=== PATIENT | male | born 1990 | race Caucasian/White ===

== ENCOUNTER 2016-04-23 12:37 | Inpatient (IN) | payer BC, MEDICAID ==
[~2016-04-23 12:37] MED LIST: ACETAMINOP160 MG/56 GB; ALBUTEROL MDI; ALBUTEROL2.5 MG/3 M INH; BACLOFEN10 M1 GT; BACTROBAN NASAL1 G1; BACTROBAN15 GM; BACTROBAN22 GM; BENEPROTEIN; BENZOYL PEROXIDE TP; CEPHALEXIN125 MG/5 M; CHILD IBUP100 MG/5 M; CHILD IBUP100 MG/5 M GB; CLINDAMYCIN 1%; DIAPER; DUAC GEL45 GM; FLORIDE DROPS; FLOVENT HFA12 GM IH; HYDROCORTISON28.4 G1 TOP; LOTRIMIN30 GM; LOTRISONE CREAM45 GM TP; MIRALAX17 GM GB; MIRALAX255 GM; MUCINEX DM; MUCINEX DM GB; NACL 0.9%; POLY VITAMIN W/50 ML GB; PROVENTIL17 GM; RANITIDINE HCL150 M3 GT; TUSSIN10 MG/5 ML; TUSSIN10 MG/5 ML GB; TUSSIN100 MG/5 M; ZANTAC15 MG/1 ML GB; ZANTAC15 MG/ML; ZOFRAN4 MG/2 ML GB; [UNRECOGNIZED DRUG - OTHER]; [UNRECOGNIZED DRUG - OTHER]; [UNRECOGNIZED DRUG - OTHER]; [UNRECOGNIZED DRUG - OTHER]; [UNRECOGNIZED DRUG - OTHER] GB; [UNRECOGNIZED DRUG - REMARK]
[2016-04-23] MEDS ORDERED: PULMICORT0.5 MG/22 INH (14:06)
[2016-04-23] MEDS ORDERED: IPRAT-ALBUT 0.5-3 ML INH (14:07)
[2016-04-23] MEDS ORDERED: VITAMIN D31000 UNI3 GT (14:07)
[2016-04-23] MEDS ORDERED: LOTRIMIN AF12 GM TOP (14:08)
[2016-04-23] MEDS ORDERED: CALMOSEPTINE O3.5 G1 TOP (14:09)
[2016-04-23 14:41] LABS: ALB/GLOB RATIO 0.9 (0.8-2.0); ALBUMIN 3.5 g/dl (3.5-5.0); ALKALINE PHOSPHATASE 106 U/L (33-138); ALT/SGPT 43 U/L (12-78); BILIRUBIN,TOTAL 0.4 mg/dl (0.0-1.5); BLOOD UREA NITROGEN 13 mg/dl (6-24); CALCIUM 8.7 mg/dl (8.5-10.5); CARBON DIOXIDE-VENOUS 23 mmol/L (22-32); CHLORIDE 111 mmol/l (96-110); CREATININE 0.59 mg/dl (0.60-1.30); GLUCOSE 92 mg/dL (70-110); SODIUM 141 mmol/L (135-145); eGFR VALUE FOR BLACK >90 mL/Min
[2016-04-23 14:46] LABS: ANION GAP 11 mmol/L (0-20); AST/SGOT 31 U/L (10-40); POTASSIUM 4.4 mmol/L (3.7-5.1)
[2016-04-23 15:05] LABS: BASO % 0.1 % (0-2); HCT-HEMATOCRIT 47.3 % (36.0-53.5); HGB-HEMOGLOBIN 16.3 gm/dl (13.5-17.0); IMMATURE GRANULOCYTES ABSOLUTE 0.01 tho/cmm (0-0.03); IMMATURE GRANULOCYTES PERCENT 0.1 % (0-0.3); LYMPH % 15.9 % (20-45); LYMPH ABSOLUTE COUNT 1.4 tho/cmm (0.8-4.5); MCH (MEAN CORPUSCULAR HGB) 32.3 pg (28.0-32.0); MCHC MEAN CORPUSCULAR HGB CONC 34.5 % (32.0-36.0); MCV (MEAN CELL VOLUME) 93.7 fl (82.0-96.0); MEAN PLATELET VOLUME 10.3 cmc (9.4-12.4); MONOCYTE ABSOLUTE COUNT 0.4 tho/cmm (0.0-1.2); NEUTROPHIL ABSOLUTE COUNT 6.9 tho/cmm (1.6-8.0); NEUTROPHIL-AUTOMATED 6.9 tho/cmm (1.6-8.0); NEUTROPHILS % 78.9 % (40-80); PLATELET COUNT 236 tho/cmm (150-450); RED BLOOD COUNT 5.05 mil/cmm (4.40-5.70); RED CELL DISTRIBUTION WIDTH 12.7 % (12.4-16.4); WHITE BLOOD COUNT 8.7 tho/cmm (4.0-10.0)
[2016-04-23 15:59] LABS: PROCALCITONIN <0.05 ng/ml (0.05-0.09)
[2016-04-24 06:12] LABS: BASO % 0.2 % (0-2); HCT-HEMATOCRIT 45.1 % (36.0-53.5); IMMATURE GRANULOCYTES ABSOLUTE 0.01 tho/cmm (0-0.03); IMMATURE GRANULOCYTES PERCENT 0.1 % (0-0.3); LYMPH % 20.2 % (20-45); LYMPH ABSOLUTE COUNT 1.8 tho/cmm (0.8-4.5); MCH (MEAN CORPUSCULAR HGB) 31.5 pg (28.0-32.0); MCHC MEAN CORPUSCULAR HGB CONC 33.3 % (32.0-36.0); MCV (MEAN CELL VOLUME) 94.7 fl (82.0-96.0); MEAN PLATELET VOLUME 9.9 cmc (9.4-12.4); MONO % 9.8 % (0-12); MONOCYTE ABSOLUTE COUNT 0.9 tho/cmm (0.0-1.2); NEUTROPHIL ABSOLUTE COUNT 6.4 tho/cmm (1.6-8.0); NEUTROPHIL-AUTOMATED 6.4 tho/cmm (1.6-8.0); NEUTROPHILS % 69.7 % (40-80); PLATELET COUNT 249 tho/cmm (150-450); RED BLOOD COUNT 4.76 mil/cmm (4.40-5.70); RED CELL DISTRIBUTION WIDTH 12.7 % (12.4-16.4); WHITE BLOOD COUNT 9.1 tho/cmm (4.0-10.0)
[2016-04-24 06:45] LABS: ANION GAP 18 mmol/L (0-20); BLOOD UREA NITROGEN 13 mg/dl (6-24); CALCIUM 8.8 mg/dl (8.5-10.5); CARBON DIOXIDE-VENOUS 22 mmol/L (22-32); CHLORIDE 111 mmol/l (96-110); GLUCOSE 76 mg/dL (70-110); POTASSIUM 4.7 mmol/L (3.7-5.1); SODIUM 146 mmol/L (135-145); eGFR VALUE FOR BLACK >90 mL/Min
[2016-04-24 06:56] LABS: PROCALCITONIN <0.05 ng/ml (0.05-0.09)
[2016-04-25 04:48] LABS: BASO % 0.2 % (0-2); EOS % 0.1 % (0-7); HCT-HEMATOCRIT 41.4 % (36.0-53.5); HGB-HEMOGLOBIN 13.9 gm/dl (13.5-17.0); IMMATURE GRANULOCYTES ABSOLUTE 0.02 tho/cmm (0-0.03); IMMATURE GRANULOCYTES PERCENT 0.2 % (0-0.3); LYMPH % 31.9 % (20-45); LYMPH ABSOLUTE COUNT 2.6 tho/cmm (0.8-4.5); MCH (MEAN CORPUSCULAR HGB) 31.5 pg (28.0-32.0); MCHC MEAN CORPUSCULAR HGB CONC 33.6 % (32.0-36.0); MCV (MEAN CELL VOLUME) 93.9 fl (82.0-96.0); MEAN PLATELET VOLUME 9.9 cmc (9.4-12.4); MONO % 9.3 % (0-12); MONOCYTE ABSOLUTE COUNT 0.8 tho/cmm (0.0-1.2); NEUTROPHIL ABSOLUTE COUNT 4.7 tho/cmm (1.6-8.0); NEUTROPHIL-AUTOMATED 4.7 tho/cmm (1.6-8.0); NEUTROPHILS % 58.3 % (40-80); PLATELET COUNT 218 tho/cmm (150-450); RED BLOOD COUNT 4.41 mil/cmm (4.40-5.70); RED CELL DISTRIBUTION WIDTH 12.5 % (12.4-16.4); WHITE BLOOD COUNT 8.1 tho/cmm (4.0-10.0)
[2016-04-25 05:58] LABS: ALBUMIN 3.3 g/dl (3.5-5.0); BLOOD UREA NITROGEN 10 mg/dl (6-24); CALCIUM 8.2 mg/dl (8.5-10.5); CARBON DIOXIDE-VENOUS 23 mmol/L (22-32); CHLORIDE 108 mmol/l (96-110); GLUCOSE 79 mg/dL (70-110); SODIUM 141 mmol/L (135-145)
[2016-04-25 06:02] LABS: ALB/GLOB RATIO 0.9 (0.8-2.0); ALKALINE PHOSPHATASE 96 U/L (33-138); ALT/SGPT 39 U/L (12-78); CREATININE 0.58 mg/dl (0.60-1.30); eGFR VALUE FOR BLACK >90 mL/Min
[2016-04-25 06:49] LABS: ANION GAP 15 mmol/L (0-20); AST/SGOT 69 U/L (10-40); BILIRUBIN,TOTAL 0.7 mg/dl (0.0-1.5); POTASSIUM 4.9 mmol/L (3.7-5.1)
[2016-04-26 05:37] LABS: ANION GAP 10 mmol/L (0-20); BLOOD UREA NITROGEN 11 mg/dl (6-24); CALCIUM 8.6 mg/dl (8.5-10.5); CARBON DIOXIDE-VENOUS 27 mmol/L (22-32); CHLORIDE 106 mmol/l (96-110); CREATININE 0.61 mg/dl (0.60-1.30); GLUCOSE 91 mg/dL (70-110); SODIUM 140 mmol/L (135-145); eGFR VALUE FOR BLACK >90 mL/Min
[2016-04-26 05:41] LABS: POTASSIUM 3.4 mmol/L (3.7-5.1)
[2016-04-26] MEDS ORDERED: AUGMENTIN 875-1 EAC2 GT (11:58)
== END 2016-04-26 14:49 | DRG 177 ==
LOC: CCU 12:37
PROVIDERS: Family Medicine; Internal Medicine Critical Care Medicine; Internal Medicine Pulmonary Disease; ADMIT Family Medicine
PROC: 05H633Z Insertion of Infusion Device into Left Subclavian Vein, Percutaneous Approach (ICD-10-PCS; principal; 2016-04-24)
DX: J69.0 Pneumonitis due to inhalation of food and vomit (principal); G80.0 Spastic quadriplegic cerebral palsy; E87.0 Hyperosmolality and hypernatremia; E87.2 Acidosis; Z93.0 Tracheostomy status; M41.9 Scoliosis, unspecified; Q87.2 Congenital malformation syndromes predominantly involving limbs; K52.9 Noninfective gastroenteritis and colitis, unspecified; E87.6 Hypokalemia; Z93.1 Gastrostomy status
CPT/HCPCS: C1751; C9113; J0295; J0780; J1956; J2405; J3480; J7030